=== PATIENT | male | born 1960 | race Caucasian/White ===

== ENCOUNTER 2020-04-11 15:52 | Emergency (ER) | payer OTHER, SELFPAY ==
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
[2020-04-11] MEDS ORDERED: HYDROCODONE/APAP 7.5/325 MG TAB ONE (17:43)
[2020-04-11 17:45] VITALS: BP 134/78; TEMP 97.6; O2SAT 99
== END 2020-04-11 17:42 | disposition home or self-care (01) ==
LOC: ER 15:52
DX: R07.81 Pleurodynia (principal); M54.5 Low back pain; V43.52XA Car driver injured in collision with other type car in traffic accident, initial encounter; Y93.89 Activity, other specified; Y92.410 Unspecified street and highway as the place of occurrence of the external cause; Z88.6 Allergy status to analgesic agent; E11.9 Type 2 diabetes mellitus without complications
CPT/HCPCS: 71046; 99283